=== PATIENT | male | born 1960 | race African-American/Black ===

== ENCOUNTER 2017-09-29 06:26 | Day surgery (SDC) | payer OTHER ==
[~2017-09-29] VITALS: Ht 170.2 cm; Wt 89.4 kg
[2017-09-29] MEDS ORDERED: ASPI81TA3 PO (07:10)
[2017-09-29] MEDS ORDERED: ALLO100T PO (07:10)
[2017-09-29] MEDS ORDERED: GABA300C16 PO (07:10)
[2017-09-29] MEDS ORDERED: BENA20TA48 PO (07:10)
[2017-09-29] MEDS ORDERED: HYDR50TA3 PO (07:10)
[2017-09-29] MEDS ORDERED: [UNRECOGNIZED DRUG - OTHER] (07:10)
[2017-09-29] MEDS ORDERED: IBUP200C11 PO (07:10)
[2017-09-29] MEDS ORDERED: ATOR40TA68 PO (07:10)
[2017-09-29] MEDS ORDERED: TRAZ100T15 PO (07:10)
[2017-09-29] MEDS ORDERED: SITA1TAB5 PO (07:10)
[2017-09-29 07:15] VITALS: Ht 170.2 cm; Wt 89.4 kg
[2017-09-29] MEDS ORDERED: PROPOFOL 20 ML ONE (07:24)
[2017-09-29] MEDS ORDERED: FENTAnyl 50 MCG/ML VIAL ONE (07:24)
[2017-09-29 07:25] VITALS: BP 143/78; PULSE 69; RESP 16
[2017-09-29] MEDS ORDERED: MIDAZOLAM 1 MG/ML 2 ML INJ ONE (07:25)
--- NOTE | 2017-09-29 08:17 | OPPN ---
Date/Time of Note Date/Time of Note DATE: 09/29/17 TIME: 08:15 Proc Note GI Procedure Date 09/29/17 Indication: screening/surveillance Pre-procedure Diagnosis r/o colon polyps Post-procedure Diagnosis colon polyp hemorrhoids Procedure Performed: Colonoscopy Surgeon see signature line Blending Tank Helper none Anesthesia Type: moderate sedation Tourniquet Time none EBL none Transfusion required none Biopsy 1: gastric esophageal bx colon bx Grafts/Implants none Tubes/Drains none Complication(s) none Disposition: PACU Procedure Description egd done showed gastritis gerd colon polyp CHRIS TROTTER MD Sep 29, 2017 08:17
[2017-09-29 08:45] VITALS: BP 126/83; PULSE 97; RESP 16
--- NOTE | 2017-09-29 12:17 | GILP ---
DATE OF PROCEDURE: PROCEDURE: Esophagogastroduodenoscopy. PREOPERATIVE DIAGNOSIS: Patient presenting with history of chronic difficulty in swallowing, rule o ut esophagitis, stricture or neoplasm, etc. POSTOPERATIVE DIAGNOSES: 1. Schatzki's ring noted. However, there is no evidence of stenosis. 2. Reflux esophagitis. 3. Nodular gastric mucosa of the body of the stomach. 4. Multiple erosions noted in the antrum of the stomach. DESCRIPTION OF PROCEDURE: After the informed written consent was obtained, the patient was asked to lie on the left lateral side. Intravenous anesthesia was given by anesthesiologist, Dr. Sousa . When the patient became somnolent, the Olympus video upper endoscope was introduced into the orop harynx, then into the esophagus. Esophagus showed evidence of Schatzki ring and there is no stenosi s noted. Multiple linear erosions were noted at this spot. Multiple biopsies were obtained to rule out Simons's esophagus. Scope at this time was advanced into the stomach. Stomach showed evidenc e of multiple nodularity in the mid body and fundus of the stomach. This could be H. pylori infecti on, rule out MALT lymphoma. Multiple biopsies were obtained. Multiple erosions were noted in the a ntrum of the stomach. Biopsy was done from the antrum, the lesser curvature of the fundus to rule o ut H. pylori infection. The duodenum appeared normal up to the end of the third portion. Scope at this time was withdrawn. On the way out, no additional abnormalities detected and the procedure was terminated. PLAN: Recommend Pantoprazole 40 mg a day for a 12 weeks. Dictated By: CHRIS GALAVIZ/DANY Conf#: [id number] DID#: [id number]
--- NOTE | 2017-09-29 12:46 | GILP ---
DATE OF PROCEDURE: PROCEDURE: Colonoscopy and biopsy. PREOPERATIVE DIAGNOSIS: Screening colonoscopy. POSTOPERATIVE DIAGNOSES: 1. Polyp noted at 50 cm, which is proximal descending colon. This was biopsied. 2. Minimal internal and minimal external hemorrhoids. DESCRIPTION OF PROCEDURE: After informed written consent was obtained, the patient was asked to lie on the left lateral side. Intravenous anesthesia was given by anesthesiologist, Dr. Sousa. W hen the patient became somnolent, Olympus video colonoscope was introduced into the rectum and scope was advanced all the way to the cecum. Entire colon appeared perfectly normal with no mucosal abno rmality. Some liquid stool was noted which was aspirated. A 3 cm polyp was noted in the proximal d escending colon. This polyp was removed. Scope at this time was withdrawn and on the way out, no a dditional abnormalities detected except minimal internal and minimal external hemorrhoids were noted and the procedure was terminated. PLAN: Recommend wait for the pathology report. Dictated By: CHRIS GALAVIZ/DANY Conf#: [id number] DID#: [id number] CC: Traci Hunter;*EndCC*
== END 2017-09-29 16:53 | disposition home or self-care (01) ==
LOC: GIL 06:26
PROVIDERS: ATTEND Internal Medicine Gastroenterology
DX: Z12.11 Encounter for screening for malignant neoplasm of colon (principal); D12.2 Benign neoplasm of ascending colon; K21.0 Gastro-esophageal reflux disease with esophagitis; K64.4 Residual hemorrhoidal skin tags; I10 Essential (primary) hypertension; E11.9 Type 2 diabetes mellitus without complications
CPT/HCPCS: 43239; 45380; 82962; J2250; J3010; Z7610